=== PATIENT | female | born 1940 | race Caucasian/White ===

== ENCOUNTER → 2021-05-29 10:25 | Outpatient (CLI) | payer MEDICARE, OTHER, SELFPAY ==
[2021-05-29 11:41] LABS: Absolute Lymphocyte Count 1.24 X10^3/uL (0.83-4.51); Basophil# 0.03 X10^3/uL; Basophil% 0.5 % (0-1); Eosinophil# 0.17 X10^3/uL; Eosinophils% 2.8 % (0-5); Hematocrit 36.8 % (37-47); Hemoglobin 11.7 g/dL (12.0-15.0); Lymphocyte # 1.24 X10^3/ul (0.83-4.51); Lymphocyte % 20.1 % (19-41); Mean Corp Hgb Conc 31.8 g/dL (32-36); Mean Corpuscular Hgb 31.3 pg (27.0-32.0); Mean Corpuscular Volume 98.4 fL (81-99); Mean Platelet Vol. 10.7 fl (6.2-12.0); Monocyte# 0.74 X10^3/uL; NRBC Flagged by Analyzer 0 % (0-5); Neutrophil # 3.97 X10^3/uL (2.7-7.7); Neutrophil % 64.4 % (47-70); Platelet Count 288 K/mm3 (150-450); RBC Distribution Width CV 13.6 % (11.6-14.6); RBC Distribution Width SD 49.1 fl (35.1-43.9); Red Blood Count 3.74 M/mm3 (4.2-5.4); White Blood Count 6.2 K/mm3 (4.4-11.0)
== END ==
PROVIDERS: PCP Internal Medicine; Visit Provider Internal Medicine Rheumatology
DX: D64.9 Anemia, unspecified (principal)
CPT/HCPCS: 36415; 85025

== ENCOUNTER 2021-12-06 14:21 | Outpatient (CLI) | payer MEDICARE, OTHER, SELFPAY ==
[2021-12-06 15:22] LABS: Absolute Lymphocyte Count 1.11 X10^3/uL (0.83-4.51); Absolute Neutrophil Count 4.2 X10^3/uL (2.0-7.7); Basophil# 0.02 X10^3/uL; Basophil% 0.3 % (0-1); Eosinophil# 0.14 X10^3/uL; Eosinophils% 2.3 % (0-5); Hematocrit 38.1 % (37-47); Hemoglobin 12.2 g/dL (12.0-15.0); Lymphocyte # 1.11 X10^3/ul (0.83-4.51); Lymphocyte % 18.3 % (19-41); Mean Corpuscular Hgb 31.6 pg (27.0-32.0); Mean Corpuscular Volume 98.7 fL (81-99); Mean Platelet Vol. 10.9 fl (6.2-12.0); Monocyte# 0.54 X10^3/uL; Monocyte% 8.9 % (0-10); NRBC Flagged by Analyzer 0 % (0-5); Neutrophil # 4.23 X10^3/uL (2.7-7.7); Platelet Count 260 K/mm3 (150-450); RBC Distribution Width CV 14.5 % (11.6-14.6); RBC Distribution Width SD 51.2 fl (35.1-43.9); Red Blood Count 3.86 M/mm3 (4.2-5.4); White Blood Count 6.1 K/mm3 (4.4-11.0)
== END 2021-12-06 23:59 | disposition home or self-care (01) ==
LOC: LAB 14:24
PROVIDERS: PCP Internal Medicine; Visit Provider Internal Medicine Rheumatology
DX: D64.9 Anemia, unspecified (principal)
CPT/HCPCS: 36415; 85025

== ENCOUNTER → 2023-12-11 | Outpatient (CLI) | payer MEDICARE, OTHER, SELFPAY ==
[2023-12-11 16:24] LABS: Absolute Lymphocyte Count 1.32 X10^3/uL (0.83-4.51); Absolute Neutrophil Count 4.8 X10^3/uL (2.0-7.7); Basophil# 0.02 X10^3/uL; Basophil% 0.3 % (0-1); Eosinophil# 0.17 X10^3/uL; Eosinophils% 2.4 % (0-5); Hematocrit 37.4 % (37-47); Hemoglobin 11.5 g/dL (12.0-15.0); Lymphocyte # 1.32 X10^3/ul (0.83-4.51); Lymphocyte % 18.9 % (19-41); Mean Corp Hgb Conc 30.7 g/dL (32-36); Mean Corpuscular Hgb 30.2 pg (27.0-32.0); Mean Corpuscular Volume 98.2 fL (81-99); Mean Platelet Vol. 10.9 fl (6.2-12.0); Monocyte# 0.61 X10^3/uL; Monocyte% 8.7 % (0-10); NRBC Flagged by Analyzer 0 % (0-5); Neutrophil # 4.84 X10^3/uL (2.7-7.7); Neutrophil % 69.4 % (47-70); Platelet Count 272 K/mm3 (150-450); RBC Distribution Width CV 14.6 % (11.6-14.6); RBC Distribution Width SD 52.1 fl (35.1-43.9); Red Blood Count 3.81 M/mm3 (4.2-5.4)
--- OUTSIDE RECORDS SUMMARY | 2023-12-11 18:21 | XMS RPT_ITS | CCD ---
Author Name Unknown Address [address] [place] [address] Organization [facility] Care Team Providers Care Vice President Of Talent Management Name Role Phone Paola Braga MD Primary Care Provider PAOLA BRAGA Primary Care Unavailable PAOLA BRAGA Primary Care Unavailable LUCITA MENDOZA Referring Unavailable PAOLA BRAGA Primary Care Unavailable Allergies Allergy Classification Reported Allergen(s) Allergy Type Date of Onset Reaction(s) Facility (4 sources) clopidogrel; Translations: [CLOPIDOGREL] Drug Allergy 10-12-[address] [facility] Work Phone: Medications Current Medications Medication Drug Class(es) Dates Sig (Normalized) Sig (Original) predniSONE 20 mg oral tablet (3 sources) Start: 03-01-2023 End: 03-06-2023 take 1 tablet by mouth once daily predniSONE (DELTASONE) 20 mg tablet Indications: Pain Take 1 tablet by mouth once daily for 5 days. 5 tablet 0 03/01/2023 03/06/2023 Active Completed/Discontinued Medications Medication Drug Class(es) Dates Sig (Normalized) Sig (Original) aspirin 81 mg delayed release oral tablet (3 sources) Platelet Aggregation Inhibitor, Nonsteroidal Anti-inflammatory Drug Start: 05-18-2016 take 1 tablet by mouth once daily aspirin, enteric coated (ADULT LOW DOSE ASPIRIN) 81 mg EC tablet Take 1 tablet by mouth once daily. 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] Onset: 10-12-2016 10-12-2016 Chronic Osteoporosis (3 sources) Postmenopausal osteoporosis; Translations: [Age-related osteoporosis without current pathological fracture] Onset: 07-29-2012 10-23-2021 Chronic Other connective tissue disease (1 source) Pain in upper limb; Translations: [Pain in right arm] Episodic Residual codes; unclassified (1 source) Pain; Translations: [Pain, unspecified] Episodic Residual codes; unclassified (1 source) Pain, unspecified; Translations: [Pain] Onset: 03-01-2023 Episodic Rheumatoid arthritis and related disease (3 sources) Rheumatoid arthritis; Translations: [Rheumatoid arthritis, unspecified] Onset: 08-09-2010 10-23-2021 Chronic Spondylosis; intervertebral disc disorders; other back problems (3 sources) Degeneration of lumbosacral intervertebral disc; Translations: [Other intervertebral disc degeneration, lumbosacral region] Onset: 07-29-2012 10-23-2021 Chronic Systemic lupus erythematosus and connective tissue disorders (3 sources) Mucous membrane dryness; Translations: [Sicca syndrome, unspecified] Onset: 07-29-2012 10-23-2021 Chronic Past or Other Problems Problem Classification Problem Date Documented Da te Episodic/Chronic Other bone disease and musculoskeletal deformities (3 sources) Osteopenia; Translations: [Other specified disorders of bone density and structure, unspecified site] Onset: 08-09-2010 10-23-2021 Episodic Other connective tissue disease (3 sources) Muscle pain; Translations: [Myalgia, unspecified site] Onset: 07-29-2012 10-23-2021 Episodic Results Test Name Value Interpretation Reference Range Facil ity Vital Signs Date Time Vital Sign Value Performing Clinician Darryn zhang 03-01-2023 08:44-0400 Body temperature 97.11 [degF] Lucita Mendoza APRN.CNP Work Phone: [facility] 03-01-2023 08:44-0400 Body weight 59.42 kg Lucita Mendoza APRN.CNP Work Phone: [facility] 03-01-2023 08:44-0400 Diastolic blood pressure 70 mm[Hg] Lucita Mendoza APRN.CNP Work Phone: [facility] 03-01-2023 08:44-0400 Heart rate 80 /min Lucita Mendoza APRN.CNP Work Phone: [facility] 03-01-2023 08:44-0400 Respiratory rate 18 /min Lucita Mendoza APRN.CNP Work Phone: [facility] 03-01-2023 08:44-0400 SaO2% (BldA) [Mass fraction] 98 % Lucita Mendoza METALWORKING SPECIALIST.SHOT CORE DRILL OPERATOR HELPER Work Phone: [facility] 03-01-2023 08:44-0400 Systolic blood pressure 124 mm[Hg] Lucita Mendoza METALWORKING SPECIALIST.SHOT CORE DRILL OPERATOR HELPER Work Phone: [facility] 11-04-2022 10:33-0500 Body temperature 99.19 [degF] Awa Lynch METALWORKING SPECIALIST.SHOT CORE DRILL OPERATOR HELPER Work Phone: [facility] 11-04-2022 10:33-0500 Body weight 58.97 kg Awa Lynch METALWORKING SPECIALIST.SHOT CORE DRILL OPERATOR HELPER Work Phone: [facility] 11-04-2022 10:33-0500 Diastolic blood pressure 80 mm[Hg] Awa Lynch METALWORKING SPECIALIST.SHOT CORE DRILL OPERATOR HELPER Work Phone: [facility] 11-04-2022 10:33-0500 Heart rate 85 /min Awa Lynch METALWORKING SPECIALIST.SHOT CORE DRILL OPERATOR HELPER Work Phone: [facility] 11-04-2022 10:33-0500 Respiratory rate 16 /min Awa Lynch METALWORKING SPECIALIST.SHOT CORE DRILL OPERATOR HELPER Work Phone: [facility] 11-04-2022 10:33-0500 SaO2% (BldA) [Mass fraction] 97 % Awa Lynch METALWORKING SPECIALIST.SHOT CORE DRILL OPERATOR HELPER Work Phone: [facility] 11-04-2022 10:33-0500 Systolic blood pressure 128 mm[Hg] Awa Lynch METALWORKING SPECIALIST.SHOT CORE DRILL OPERATOR HELPER Work Phone: [facility] Encounters Encounter Date Encounter Type Care Provider Facility Start: 03-28-2023 ambulatory [facility] David Lantigua Start: 03-01-2023 End: 03-01-2023 ambulatory PAOLA BRAGA Facility:[facility] Start: 03-01-2023 End: 03-01-2023 Patient encounter procedure Lucita Mendoza APRN.SHOT CORE DRILL OPERATOR HELPER Work Phone: [facility] Plan of Treatment Date Care Activity Detail Author Start: 10-28-2022 ADVANCE DIRECTIVE DISCUSSION ADVANCE DIRECTIVE DISCUSSION [facility] Start: 10-28-2022 DEPRESSION ASSESSMENT DEPRESSION ASS ESSMENT [facility] Start: 01-10-2021 COVID-19 VACCINE (3 - Moderna risk series) COVID-19 VACCINE (3 - Moderna risk series) [facility] Start: 04-10-2019 DIABETES SCREEN DIABETES SCREEN [facility] Start: 08-10-2010 Urine microalbumin profile DTAP,TDAP ,TD (1 - Tdap) [facility] Start: 02-09-1960 SHINGRIX VACCINE (1 of 2) ROMERO GRIX VACCINE (1 of 2) [facility] Immunizations Immunization Date Immunization Notes Care Provider Kerri almanzar 04-13-2019 pneumococcal conjuga te vaccine, 13 valent Awa Lynch METALWORKING SPECIALIST.SHOT CORE DRILL OPERATOR HELPER Work Phone: [facility] Work Phone: 08-15-2016 influenza, high dose seasonal, preservative-free Awa Lynch METALWORKING SPECIALIST.SHOT CORE DRILL OPERATOR HELPER Work Phone: [facility] 08-11-2013 influenza virus vacc ine, unspecified formulation Awa Cris METALWORKING SPECIALIST.SHOT CORE DRILL OPERATOR HELPER Work Phone: [facility] 08-09-2010 pneumococcal polysaccharide vaccine, 23 valent Awa Lynch METALWORKING SPECIALIST.SHOT CORE DRILL OPERATOR HELPER Work Phone: [facility] 08-09-2010 tetanus and diphther ia toxoids, adsorbed, preservative free, for adult use (2 Lf of tetanus toxoid and 2 Lf of diphtheria toxoid) Awacarmina Lynch METALWORKING SPECIALIST.SHOT CORE DRILL OPERATOR HELPER Work Phone: [facility] Payers Date Payer Category Payer Medicare MEDICARE MEDICAR E A AND B [id number] 2006-Present [phone] [place] [address] Medicare [id number] 2006 Medicare [id number] 2006 Unknown HOSPITAL/MEDICAL GENERIC MEDICAL GENERIC [id number] 2006-Present [phone] [address] [place] [address] [place] [id number] 2006 Unknown [id number] Social History Date Type Detail Facility Start: 11-04-2022 Tobacco smoking stat us NHIS Never smoked tobacco [facility] Start: 11-04-2022 Tobacco use and exposure Smoke less tobacco non-user [facility] Start: 11-04-2022 End: 03-01-2023 Alcohol intake Current non-drinker of alcohol (finding) [facility] Start: 1940 Sex Assigned At Not on file [facility] Clinical Note 03-28-2023 Note Date & Type Note Facility 03-28-2023 Note Patient Outreach (JOYCE TNLETHA) FERNANDO FALL ([id number]) 1940 F Date Time Provider Department 03/28/23 NO PCP NETNA[facility] During your visit today, we recorded the following information about you: Lamar Shearer 03/28/2023 9:23 AM Signed POPULATION HEALTH NAVIGATION OUTREACH Action/FYI Called out to patient about scheduling Ortho consult dated 03/01/23 pt declined Patient Identified by Name and : YES, via phone Outreach Outcome/Action Spoke to patient / parent / legal guardian: Patient declined Did you use a PCP flex slot to schedule this appointment? No Reason for Outreach Care Gap or Scheduling/Wellness visits Payer: Payor: MEDICARE / Plan: MEDICARE A AND B / Product Type: Medicare / Care Gap Reviewed:: SAMIRA Reminder: Reminder note to check Health Maintenance for items below Health Maintenance items due: SHINGRIX VACCINE(1 of 2) Never done DTAP,TDAP,TD(1 - Tdap) due on 08/10/2010 DIABETES SCREEN due on 04/10/2019 COVID-19 VACCINE(3 - Moderna risk series) due on 01/10/2021 ADVANCE DIRECTIVE DISCUSSION Never done DEPRESSION ASSESSMENT Never done Navigation Signature: Lamar Shearer March 28, 2023 9:22 AM Allergies As of Date: 03/28/2023 Noted Allergy Reaction PLAVIX (CLOPIDOGREL) 10/12/2016 17 - Myalgia Date Reviewed: 03/01/2023 Reviewed by: Grace Ramos MA - Fully Assessed Prescriptions as of 03/28/2023 - cyclobenzaprine (FLEXERIL) 10 mg tablet Take 0.5 tablets by mouth three times daily as needed for muscle spasm. - PYRIDOXINE HCL (VITAMIN B-6 ORAL) Take 1 tablet by mouth once daily. - aspirin, enteric coated (ADULT LOW DOSE ASPIRIN) 81 mg EC tablet Take 1 tablet by mouth once daily. - etodolac 200 mg capsule Take 2 capsules by mouth twice daily as needed. - methotrexate 2.5 mg tablet Take 3 tablets weekly - Cholecalciferol, Vitamin D3, 2,000 unit cap Take 1 tablet by mouth once daily. - hydrOXYchloroQUINE (PLAQUENIL) 200 mg tablet - folic acid 1 mg ORAL tablet Take one(1) tablet daily. - calcium carbonate 600 mg-cholecalciferol 400 units 600 mg-10 mcg (400 unit) tab Take one(1) tablet two(2) times daily. - Yteoucfxgucpg-Mvkcuscz-Drwblb (CENTRUM SILVER) tab Take one(1) tablet daily. Problem List As Of Date 03/28/2023 Noted Resolved Rheumatoid arthritis (HCC) [M06.9] 08/09/2010 Osteopenia [M85.80] 08/09/2010 Post-menopausal osteoporosis [M81.0] 07/29/2012 Myalgia [M79.10] 07/29/2012 Degeneration of lumbar or lumbosacral intervert*07/29/2012 Sicca syndrome (HCC) [M35.00] 07/29/2012 Stenosis of left middle cerebral artery [I66.02]10/12/2016 Encounter Status:Closed by LAMAR ROJO on 03/28/23 [facility] Progress note 03-28-2023 Note Date & Type Note Facility 03-28-2023 Note HNO ID: [id number] Author: Lamar Shearer Service: ? Author Type: ? Type: Progress Notes Filed: 03/28/2023 9:23 AM Note Text: POPULATION HEALTH NAVIGATION OUTREACH Action/FYI Called out to patient about scheduling Ortho consult dated 03/01/23 pt declined Patient Identified by Name and : YES, via phone Outreach Outcome/Action Spoke to patient / parent / legal guardian: Patient declined Did you use a PCP flex slot to schedule this appointment? No Reason for Outreach Care Gap or Scheduling/Wellness visits Payer: Payor: MEDICARE / Plan: MEDICARE A AND B / Product Type: Medicare / Care Gap Reviewed:: SAMIRA Reminder: Reminder note to check Health Maintenance for items below Health Maintenance items due: SHINGRIX VACCINE(1 of 2) Never done DTAP,TDAP,TD(1 - Tdap) due on 08/10/2010 DIABETES SCREEN due on 04/10/2019 COVID-19 VACCINE(3 - Moderna risk series) due on 01/10/2021 ADVANCE DIRECTIVE DISCUSSION Never done DEPRESSION ASSESSMENT Never done Navigation Signature: Lamar Shearer March 28, 2023 9:22 AM [facility] History of Present illness Narrative 03-28-2023 Lamar Shearer - 03/28/2023 9:22 AM EDT Note Date & Type Note Facility 03-28-2023 History of Presen t illness Narrative POPULATION HEALTH NAVIGATION OUTREACH Action/FYI Called out to patient about scheduling Ortho consult dated 03/01/23 pt declined Patient Identified by Name and : YES, via phone Outreach Outcome/Action Spoke to patient / parent / legal guardian: Patient declined Did you use a PCP flex slot to schedule this appointment? No Reason for Outreach Care Gap or Scheduling/Wellness visits Payer: Payor: MEDICARE / Plan: MEDICARE A AND B / Product Type: Medicare / Care Gap Reviewed:: SAMIRA Reminder: Reminder note to check Health Maintenance for items below Health Maintenance items due: SHINGRIX VACCINE(1 of 2) Never done DTAP,TDAP,TD(1 - Tdap) due on 08/10/2010 DIABETES SCREEN due on 04/10/2019 COVID-19 VACCINE(3 - Moderna risk series) due on 01/10/2021 ADVANCE DIRECTIVE DISCUSSION Never done DEPRESSION ASSESSMENT Never done Navigation Signature: Lamar Shearer March 28, 2023 9:22 AM documented in this encounter [facility] Progress note 03-01-2023 Note Date & Type Note Facility 03-01-2023 Note HNO ID: [id number] Author: RT Michi(R) Service: Radiology Author Type: Technologist Type: Progress Notes Filed: 03/01/2023 9:19 AM Note Text: Radiology Service Progress Note PATIENT NAME: Fernando Fall DATE OF SERVICE: March 01, 2023 TIME: 9:04 AM PATIENT IDENTITY VERIFICATION COMPLETED USING TWO (2) IDENTIFIERS: Name and Date of confirmed by patient verbally. FALL SCREENING: Has the patient had 2 falls in the last year or 1 fall with injury or currently using an Ambulatory Assistive Device (Walker, Cane, Wheelchair, Crutches, etc.)? No PATIENT GENDER DATA: Female. status: : No status: NO. PATIENT RELEVANT IMPLANT DATA REVIEWED: Yes RADIOLOGY DEPARTMENT: General X-ray: Exam(s) Completed: Spine X-Ray(s): Lumbar AP / LAT / L5-S1 and Sacrum/Coccyx PERIPHERAL IV DATA: Not applicable SIGNED BY: RT Michi(R) March 01, 2023 9:04 AM [facility] Progress note 03-01-2023 Note Date & Type Note Facility 03-01-2023 Note HNO ID: [id number] Author: Lucita Mendoza APRN.SHOT CORE DRILL OPERATOR HELPER Service: ? Author Type: Nurse Practitioner Type: Progress Notes Filed: 03/01/2023 10:25 AM Note Text: Subjective She came in with complaints of lower right back pain. Patient says about 9 days ago she fell out of a rolling chair when she went to sit in it. Patient says initially she did not have any pain. Patient says she does have osteoporosis. Patient said about 6 days ago she started having pain. Patient says the pain does not radiate down her legs or anywhere else. Patient denies any numbness or tingling. Patient just says it hurts more so to bend over. Patient denies any other symptoms. The history is provided by the patient. No facing baster was used. Review of Systems Constitutional: Negative. Skin: Negative. Objective Physical Exam Constitutional: Appearance: Normal appearance. Pulmonary: Effort: Pulmonary effort is normal. Musculoskeletal: Arms: Comments: Is having the pain in the area marked above. Pain is not reproducible upon palpation. No Deformities noted. Neurological: Mental Status: She is alert. PAST MEDICAL HISTORY Diagnosis Date Degeneration of lumbar or lumbosacral intervertebral disc Diverticulosis of colon (without mention of hemorrhage) Encounter for long-term (current) use of other medications Inflammatory arthritis Internal hemorrhoids without mention of complication PMR (polymyalgia rheumatica) ([facility]) RA (rheumatoid arthritis) ([facility]) Senile osteoporosis Stenosis of left middle cerebral artery 10/12/2016 PAST SURGICAL HISTORY Procedure Laterality Date CARPAL TUNNEL RIGHT WRIST Right [facility] [place] COLONOSCOPY FLX DX W/COLLJ SPEC WHEN PFRMD 11/24/2010 ALLERGIES Plavix [Clopidogrel] MEDICATIONS aspirin, enteric coated (ADULT LOW DOSE ASPIRIN) 81 mg EC tablet Take 1 tablet by mouth once daily. methotrexate 2.5 mg tablet Take 3 tablets weekly Cholecalciferol, Vitamin D3, 2,000 unit cap Take 1 tablet by mouth once daily. hydrOXYchloroQUINE (PLAQUENIL) 200 mg tablet folic acid 1 mg ORAL tablet Take one(1) tablet daily. Fwnizwvkrvkvn-Grvkoqai-Zwvgdd (CENTRUM SILVER) tab Take one(1) tablet daily. predniSONE (DELTASONE) 10 mg tablet Take 4 tabs daily for 3 days, then 2 tabs daily for 3 days, then 1 tab daily for 3 days with food. (Patient not taking: Reported on 03/01/2023) cyclobenzaprine (FLEXERIL) 10 mg tablet Take 0.5 tablets by mouth three times daily as needed for muscle spasm. (Patient not taking: Reported on 03/01/2023) PYRIDOXINE HCL (VITAMIN B-6 ORAL) Take 1 tablet by mouth once daily. (Patient not taking: Reported on 03/01/2023) etodolac 200 mg capsule Take 2 capsules by mouth twice daily as needed. (Patient not taking: Reported on 03/01/2023) calcium carbonate 600 mg-cholecalciferol 400 units 600 mg-10 mcg (400 unit) tab Take one(1) tablet two(2) times daily. (Patient not taking: Reported on 03/01/2023) FAMILY HISTORY Problem Relation Age of Onset Heart Brother ; had open heart surgery/cabg Heart Other Paternal side of family Breast Cancer Other Niece (sisters dtr)/Maternal Cousin Social History Tobacco Use Smoking status: Never Smokeless tobacco: Never Substance Use Topics Alcohol use: No ASSESSMENT/PLAN: 1. Pain - ICD9: 780.96, ICD10: R52 - XR SACRUM/COCCYX 3V AP/LAT - XR LUMBAR GENERAL 3V AP/LAT/L5-S1 * * * * Physician Interpretation * * * * EXAM: XR LUMBAR 3V AP/LAT/L5-S1, XR SACRUM/COCCYX 3V AP/LAT HISTORY: Back pain VIEWS: Weightbearing AP, lateral and coned lateral L5-S1 views of the lumbar spine. AP x2 and lateral sacrum-coccyx. COMPARISON: No. FINDINGS: Convex right thoracic curvature. Satisfactory anteroposterior alignment. No fracture or destructive lesion. Severe L4-5 interspace narrowing with endplate sclerosis and marginal spurring. Asymmetrical L3-4 interspace narrowing and narrowed L5-S1 interspace. Distal apophyseal joint arthrosis. 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 Intact sacrum-coccyx. Left sacroiliac joint space narrowing and mild periarticular sclerosis. IMPRESSION IMPRESSION: Lumbar spondylosis and spinal curvature. No acute fracture. Counting reference: Lumbosacral junction. For the purposes of this report, L4-5 is considered the level of the iliac crest and there are 5 lumbar-type vertebrae. Anatomic Variants: None. Food And Beverage Director: NADJA Transcribe Date/Time: Mar 01 2023 9:35A Dictated by : MD Lucita ISAAC APRN.[facility] History of Present illness Narrative 03-01-2023 Lucita Mendoza APRN.[facility] - 03/01/2023 8:56 AM EDT Note Date & Type Note Facility 03-01-2023 History of Presen t illness Narrative Images from the original note were not included. Subjective She came in with complaints of lower right back pain. Patient says about 9 days ago she fell out of a rolling chair when she went to sit in it. Patient says initially she did not have any pain. Patient says she does have osteoporosis. Patient said about 6 days ago she started having pain. Patient says the pain does not radiate down her legs or anywhere else. Patient denies any numbness or tingling. Patient just says it hurts more so to bend over. Patient denies any other symptoms. The history is provided by the patient. No facing baster was used. Review of Systems Constitutional: Negative. Skin: Negative. Objective Physical Exam Constitutional: Appearance: Normal appearance. Pulmonary: Effort: Pulmonary effort is normal. Musculoskeletal: Arms: Comments: Is having the pain in the area marked above. Pain is not reproducible upon palpation. No Deformities noted. Neurological: Mental Status: She is alert. PAST MEDICAL HISTORY Diagnosis Date Degeneration of lumbar or lumbosacral intervertebral disc Diverticulosis of colon (without mention of hemorrhage) Encounter for long-term (current) use of other medications Inflammatory arthritis Internal hemorrhoids without mention of complication PMR (polymyalgia rheumatica) ([facility]) RA (rheumatoid arthritis) ([facility]) Senile osteoporosis Stenosis of left middle cerebral artery 10/12/2016 PAST SURGICAL HISTORY Procedure Laterality Date CARPAL TUNNEL RIGHT WRIST Right [facility] [place] COLONOSCOPY FLX DX W/COLLJ SPEC WHEN PFRMD 11/24/2010 ALLERGIES Plavix [Clopidogrel] MEDICATIONS aspirin, enteric coated (ADULT LOW DOSE ASPIRIN) 81 mg EC tablet Take 1 tablet by mouth once daily. methotrexate 2.5 mg tablet Take 3 tablets weekly Cholecalciferol, Vitamin D3, 2,000 unit cap Take 1 tablet by mouth once daily. hydrOXYchloroQUINE (PLAQUENIL) 200 mg tablet folic acid 1 mg ORAL tablet Take one(1) tablet daily. Fgvclxkibmtxn-Lgkmmwsj-Nlqjgg (CENTRUM SILVER) tab Take one(1) tablet daily. predniSONE (DELTASONE) 10 mg tablet Take 4 tabs daily for 3 days, then 2 tabs daily for 3 days, then 1 tab daily for 3 days with food. (Patient not taking: Reported on 03/01/2023) cyclobenzaprine (FLEXERIL) 10 mg tablet Take 0.5 tablets by mouth three times daily as needed for muscle spasm. (Patient not taking: Reported on 03/01/2023) PYRIDOXINE HCL (VITAMIN B-6 ORAL) Take 1 tablet by mouth once daily. (Patient not taking: Reported on 03/01/2023) etodolac 200 mg capsule Take 2 capsules by mouth twice daily as needed. (Patient not taking: Reported on 03/01/2023) calcium carbonate 600 mg-cholecalciferol 400 units 600 mg-10 mcg (400 unit) tab Take one(1) tablet two(2) times daily. (Patient not taking: Reported on 03/01/2023) FAMILY HISTORY Problem Relation Age of Onset Heart Brother ; had open heart surgery/cabg Heart Other Paternal side of family Breast Cancer Other Niece (sisters dtr)/Maternal Cousin Social History Tobacco Use Smoking status: Never Smokeless tobacco: Never Substance Use Topics Alcohol use: No ASSESSMENT/PLAN: 1. Pain - ICD9: 780.96, ICD10: R52 - XR SACRUM/COCCYX 3V AP/LAT - XR LUMBAR GENERAL 3V AP/LAT/L5-S1 * * * * Physician Interpretation * * * * EXAM: XR LUMBAR 3V AP/LAT/L5-S1, XR SACRUM/COCCYX 3V AP/LAT HISTORY: Back pain VIEWS: Weightbearing AP, lateral and coned lateral L5-S1 views of the lumbar spine. AP x2 and lateral sacrum-coccyx. COMPARISON: No. FINDINGS: Convex right thoracic curvature. Satisfactory anteroposterior alignment. No fracture or destructive lesion. Severe L4-5 interspace narrowing with endplate sclerosis and marginal spurring. Asymmetrical L3-4 interspace narrowing and narrowed L5-S1 interspace. Distal apophyseal joint arthrosis. 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 Intact sacrum-coccyx. Left sacroiliac joint space narrowing and mild periarticular sclerosis. IMPRESSION IMPRESSION: Lumbar spondylosis and spinal curvature. No acute fracture. Counting reference: Lumbosacral junction. For the purposes of this report, L4-5 is considered the level of the iliac crest and there are 5 lumbar-type vertebrae. Anatomic Variants: None. Food And Beverage Director: NADJA Transcribe Date/Time: Mar 01 2023 9:35A Dictated by : MD Lucita ISAAC APRN.SHOT CORE DRILL OPERATOR HELPER documented in this encounter [facility] Progress note 11-04-2022 Note Date & Type Note Facility 11-04-2022 Note HNO ID: [id number] Author: Awa Lynch APRN.[facility] Service: ? Author Type: Nurse Practitioner Type: Progress Notes Filed: 11/04/2022 11:48 AM Note Text: This note was created using NoteWriter. Subjective Fernando Fall is a 82 year old female. 82 year old female with PMH RS, degenerative disc disease, and osteopenia for complaints of pain. 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 Denies SOB Denies skin rash or lesions. Denies cough or congestion. Denies weakness Denies fever or chills. States that pain is exacerbated with movement. States she is unable to place her arm above her head. Has used Tylenol and analgesic creams. States that it provides mild relief. States pain is worse in morning. She takes Plaquenil and Methotrexate She utilizes Vitamin D. She is a patient of [facility] The history is provided by the patient. No facing baster was used. Musculoskeletal Problem This is a new problem. The current episode started in the past 7 days. The problem occurs constantly. The problem has been unchanged. Pertinent negatives include no abdominal pain, anorexia, arthralgias, change in bowel habit, chest pain, chills, congestion, coughing, diaphoresis, fatigue, fever, headaches, joint swelling, myalgias, nausea, neck pain, numbness, rash, sore throat, swollen glands, urinary symptoms, vertigo, visual change, vomiting or weakness. Exacerbated by: movement and use of arm. She has tried acetaminophen (topical analgesics) for the symptoms. The treatment provided mild relief. 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 cyclobenzaprine (FLEXERIL) 10 mg tablet Take 0.5 tablets by mouth three times daily as needed for muscle spasm. PYRIDOXINE HCL (VITAMIN B-6 ORAL) Take 1 tablet by mouth once daily. aspirin, enteric coated (ADULT LOW DOSE ASPIRIN) 81 mg EC tablet Take 1 tablet by mouth once daily. etodolac 200 mg capsule Take 2 capsules by mouth twice daily as needed. methotrexate 2.5 mg tablet Take 3 tablets weekly Cholecalciferol, Vitamin D3, 2,000 unit cap Take 1 tablet by mouth once daily. hydroxychloroquine (PLAQUENIL) 200 mg ORAL tablet folic acid 1 mg ORAL tablet Take one(1) tablet daily. Calcium-Cholecalciferol, D3, (CALCIUM WITH VITAMIN D) 600-400 mg-unit ORAL Tab Take one(1) tablet two(2) times daily. Nnlcmtshvtozo-Cdvpbfcd-Wkyeap (CENTRUM SILVER) ORAL Tab Take one(1) tablet daily. FAMILY HISTORY Problem Relation Age of Onset Heart Brother ; had open heart surgery/cabg Heart Other Paternal side of family Breast Cancer Other Niece (sisters dtr)/Maternal Cousin Social History Tobacco Use Smoking status: Never Smokeless tobacco: Never Substance Use Topics Alcohol use: No Review of Systems Constitutional: Negative for chills, diaphoresis, fatigue and fever. HENT: Negative for congestion and sore throat. Respiratory: Negative for apnea, cough, choking and chest tightness. Cardiovascular: Negative for chest pain. Gastrointestinal: Negative for abdominal pain, anorexia, change in bowel habit, nausea and vomiting. Musculoskeletal: Negative for arthralgias, joint swelling, myalgias and neck pain. Right shoulder and neck Skin: Negative for rash. Allergic/Immunologic: Negative for environmental allergies, food allergies and immunocompromised state. Neurological: Negative for dizziness, vertigo, tremors, seizures, syncope, facial asymmetry, speech difficulty, weakness, light-headedness, numbness and headaches. Hematological: Negative for adenopathy. Does not bruise/bleed easily. Psychiatric/Behavioral: Negative for agitation and behavioral problems. Objective BP 128/80 Pulse 85 Temp 37.3 ?C (99.2 ?F) Resp 16 Wt 59 kg (130 lb) SpO2 97% BMI 23.78 kg/m? Physical Exam Vitals and nursing note reviewed. Constitutional: General: She is not in acute distress. Appearance: Normal appearance. She is normal weight. She is not ill-a (more content not included)... [facility] History of Present illness Narrative 11-04-2022 Awa Lynch APRN.SHOT CORE DRILL OPERATOR HELPER - 11/04/2022 10:43 AM EST Note Date & Type Note Facility 11-04-2022 History of Presen t illness Narrative Images from the original note were not included. This note was created using [employer]. Subjective Fernando Fall is a 82 year old female. 82 year old female with PMH RS, degenerative disc disease, and osteopenia for complaints of pain. 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 Denies SOB Denies skin rash or lesions. Denies cough or congestion. Denies weakness Denies fever or chills. States that pain is exacerbated with movement. States she is unable to place her arm above her head. Has used Tylenol and analgesic creams. States that it provides mild relief. States pain is worse in morning. She takes Plaquenil and Methotrexate She utilizes Vitamin D. She is a patient of [facility] The history is provided by the patient. No facing baster was used. Musculoskeletal Problem This is a new problem. The current episode started in the past 7 days. The problem occurs constantly. The problem has been unchanged. Pertinent negatives include no abdominal pain, anorexia, arthralgias, change in bowel habit, chest pain, chills, congestion, coughing, diaphoresis, fatigue, fever, headaches, joint swelling, myalgias, nausea, neck pain, numbness, rash, sore throat, swollen glands, urinary symptoms, vertigo, visual change, vomiting or weakness. Exacerbated by: movement and use of arm. She has tried acetaminophen (topical analgesics) for the symptoms. The treatment provided mild relief. 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 cyclobenzaprine (FLEXERIL) 10 mg tablet Take 0.5 tablets by mouth three times daily as needed for muscle spasm. PYRIDOXINE HCL (VITAMIN B-6 ORAL) Take 1 tablet by mouth once daily. aspirin, enteric coated (ADULT LOW DOSE ASPIRIN) 81 mg EC tablet Take 1 tablet by mouth once daily. etodolac 200 mg capsule Take 2 capsules by mouth twice daily as needed. methotrexate 2.5 mg tablet Take 3 tablets weekly Cholecalciferol, Vitamin D3, 2,000 unit cap Take 1 tablet by mouth once daily. hydroxychloroquine (PLAQUENIL) 200 mg ORAL tablet folic acid 1 mg ORAL tablet Take one(1) tablet daily. Calcium-Cholecalciferol, D3, (CALCIUM WITH VITAMIN D) 600-400 mg-unit ORAL Tab Take one(1) tablet two(2) times daily. Lmkpzohmogbtb-Nyzniusp-Bixsgk (CENTRUM SILVER) ORAL Tab Take one(1) tablet daily. FAMILY HISTORY Problem Relation Age of Onset Heart Brother ; had open heart surgery/cabg Heart Other Paternal side of family Breast Cancer Other Niece (sisters dtr)/Maternal Cousin Social History Tobacco Use Smoking status: Never Smokeless tobacco: Never Substance Use Topics Alcohol use: No Review of Systems Constitutional: Negative for chills, diaphoresis, fatigue and fever. HENT: Negative for congestion and sore throat. Respiratory: Negative for apnea, cough, choking and chest tightness. Cardiovascular: Negative for chest pain. Gastrointestinal: Negative for abdominal pain, anorexia, change in bowel habit, nausea and vomiting. Musculoskeletal: Negative for arthralgias, joint swelling, myalgias and neck pain. Right shoulder and neck Skin: Negative for rash. Allergic/Immunologic: Negative for environmental allergies, food allergies and immunocompromised state. Neurological: Negative for dizziness, vertigo, tremors, seizures, syncope, facial asymmetry, speech difficulty, weakness, light-headedness, numbness and headaches. Hematological: Negative for adenopathy. Does not bruise/bleed easily. Psychiatric/Behavioral: Negative for agitation and behavioral problems. Objective BP 128/80 Pulse 85 Temp 37.3 C (99.2 F) Resp 16 Wt 59 kg (130 lb) SpO2 97% BMI 23.78 kg/m Physical Exam Vitals and nursing note reviewed. Constitutional: General: She is not in acute distress. Appearance: Normal appearance. She is normal weight. She is not ill-appearing, toxic-appearing or diaphoretic. Comments: Elderly well appearing female HENT: Head: Normocephalic and atraumatic. Right Ear: Ear canal and external ear normal. Left Ear: Ear canal and external ear normal. Nose: Nose normal. No congestion or rhinorrhea. Mouth/Throat: Mouth: Mucous membranes are moist. Pharynx: No oropharyngeal exudate or posterior oropharyngeal erythema. Eyes: General: Right eye: No discharge. Left eye: No discharge. Extraocular Movements: Extraocular movements intact. Conjunctiva/sclera: Conjunctivae normal. Pupils: Pupils are equal, round, and reactive to light. Cardiovascular: Rate and Rhythm: Normal rate and regular rhythm. Pulses: Normal pulses. Heart sounds: Normal heart sounds. No murmur heard. No friction rub. Pulmonary: Effort: Pulmonary effort is normal. No respiratory distress. Breath sounds: Normal breath sounds. No stridor. No wheezing, rhonchi or rales. Chest: Chest wall: No tenderness. Abdominal: General: Abdomen is flat. There is no distension. Palpations: Abdomen is soft. There is no mass. Tenderness: There is no abdominal tenderness. There is no right CVA tenderness, left CVA tenderness, guarding or rebound. Hernia: No hernia is present. Musculoskeletal: General: No swelling, tenderness, deformity or signs of injury. Normal range of motion. Arms: Cervical back: Normal range of motion and neck supple. No rigidity. Right lower leg: No edema. Left lower leg: No edema. Comments: Area marked is where patient depicts pain. +mild TTP noted at intermittent points No rash [employer] Head strength equal Skin intact Unable to fully raise right extremity above head related to pain. Lymphadenopathy: Cervical: No cervical adenopathy. Skin: General: Skin is warm and dry. Coloration: Skin is not jaundiced or pale. Findings: No bruising, erythema, lesion or rash. Neurological: General: No focal deficit present. Mental Status: She is alert and oriented to person, place, and time. Cranial Nerves: No cranial nerve deficit. Sensory: No sensory deficit. Motor: No weakness. Coordination: Coordination normal. Gait: Gait normal. Psychiatric: Mood and Affect: Mood normal. Behavior: Behavior normal. Thought Content: Thought content normal. Judgment: Judgment normal. Assessment and Plan ASSESSMENT/PLAN: 1. Diffuse pain in right upper extremity - ICD9: 729.5, ICD10: M79.601 X 4 days No known trauma or injury, ??? Rotator cuff pathology given patient can't raise right upper extremity above head. No red flags RX Prednisone taper RICE therapy Have provided Flexeril, but discussed risks associated and should use it when home, lives with family. Will follow up with ortho. Awa Lynch APRN.SHOT CORE DRILL OPERATOR HELPER documented in this encounter [facility] Evaluation note Note Date & Type Note Facility documented in this encounter [facility] Evaluation note Note Date & Type Note Facility documented in this encounter [facility] Reason for Referral Specialty Diagnoses / Procedures Referred By Contac t Referred To Contact Awa Lynch APRN.SHOT CORE DRILL OPERATOR HELPER [address] [place] [address] Referral ID Status Reason Start Date Expiration Date V isits Requested Visits Authorized [id number] Pending Review 1 1 Specialty Diagnoses / Procedures Referred By Contac t Referred To Contact Orthopedics Diagnoses Pain Procedures CONSULT TO ORTHOPAEDICS OFFICE/OUTPATIENT [facility] 60-74 MINUTES Lucita Mendoza APRN.SHOT CORE DRILL OPERATOR HELPER [address] [place] [address] Referral ID Status Reason Start Date Expiration Date Visits Requested Visits Authorized [id number] Authorized PCP Requested Referral 03/01/2023 02/29/2024 1 1 Specialty Diagnoses / Procedures Referred By Contac t Referred To Contact XR IMAGING Diagnoses Pain Procedures XR LUMBAR GENERAL 3V AP/LAT/L5-S1 RADEX SPINE LUMBOSACRAL 2/3 VIEWS Lucita Mendoza APRN.SHOT CORE DRILL OPERATOR HELPER [address] [place] [address] Xr Imaging Referral ID Status Reason Start Date Expiration Date V isits Requested Visits Authorized [id number] Closed Auto-Generate d Referral 03/01/2023 03/30/2024 1 1 Specialty Diagnoses / Procedures Referred By Contac t Referred To Contact XR IMAGING Diagnoses Pain Procedures XR SACRUM/COCCYX 3V AP/LAT RADEX SACRUM & COCCYX MINIMUM 2 VIEWS Lucita Mendoza APRN.SHOT CORE DRILL OPERATOR HELPER [address] [place] [address] Xr Imaging Referral ID Status Reason Start Date Expiration Date V isits Requested Visits Authorized [id number] Closed Auto-Generate d Referral 03/01/2023 03/30/2024 1 1 Summary Purpose Family History No Family History Records Found Advance Directives No Advanced Directives Records Found Additional Source Comments Source Comments (unrecognize d section and content) In the event this informatio n is protected by the Federal Confidentiality of Alcohol and Drug Abuse Patient Records regulations: The Federal rules restrict any use of the information to criminally investigate or prosecute any alcohol or drug abuse patient.[facility] event this information is protected by the Federal Confidentiality of Alcohol and Drug Abuse Patient Records regulations: The Federal rules restrict any use of the information to criminally investigate or prosecute any alcohol or drug abuse patient.[facility] the event this information is protected by the Federal Confidentiality of Alcohol and Drug Abuse Patient Records regulations: The Federal rules restrict any use of the information to criminally investigate or prosecute any alcohol or drug abuse patient.[facility] Reason for Visit (unrecogniz ed section and content) Reason Comments Low Back Pain R sided low back [place] n x5 days Care Teams (unrecognized sec tion and content) Vice President Of Talent Management Relationship Specialty Start Date End Date Paola Braga MD [address] [place] [address] PCP - General Internal Medicine 11/19/13 Vice President Of Talent Management Relationship Specialty Start Date End Date Paola Braga MD [address] [place] [address] PCP - General Internal Medicine 11/19/13 INFORMATION SOURCE (unrecogn ized section and content) FOR RECORDS PERTAINING TO PATIENTS WHO ARE OR HAVE BEEN ENROLLED IN A CHEMICAL DEPENDENCY/SUBSTANCEABUSE PROGRAM, SOME INFORMATION MAY BE OMITTED. This clinical summary was aggregated from multiple sources. Caution should be exercised in using it in the provision of clinical care. This summary normalizes information from multiple sources, and as a consequence, information in this document may materially change the coding, format and clinical context of patient data. In addition, data may be omitted in some cases. CLINICAL DECISIONS SHOULD BE BASED ON THE PRIMARY CLINICAL RECORDS. [facility]. provides no warranty or guarantee of the accuracy or completeness of information in this document.
== END | disposition home or self-care (01) ==
LOC: LAB 14:26
PROVIDERS: PCP Internal Medicine; Visit Provider Internal Medicine Rheumatology
DX: D64.9 Anemia, unspecified (principal)
CPT/HCPCS: 36415; 85025